=== PATIENT | female | born 1995 | race American Indian/Alaskan Native ===

== ENCOUNTER 2020-01-28 01:00 | Emergency (ER) | payer MEDICAID ==
[2020-01-28] MEDS ORDERED: SODIUM CHLORIDE 0.9% 1000 ML 1,000 ML IV ONE (03:01)
[2020-01-28] MEDS ORDERED: PYRIDOXINE 50 MG TAB PO SCH (03:01)
[2020-01-28] MEDS ORDERED: diphenhydrAMINE 50 MG/ML VIAL IV STA (03:01)
[2020-01-28] MEDS ORDERED: METOCLOPRAMIDE 10 MG/2 ML INJ IV STA (03:01)
--- NOTE | 2020-01-28 03:23 | Emergency Department Report ---
ED N/V/D HPI - General Chief complaint: Nausea/Vomiting/Diarrhea Stated complaint: VOMITING(9-10 WKS PREG) Time Seen by Provider: 01/28/20 03:00 Source: patient Mode of arrival: Ambulatory Limitations: No Limitations - History of Present Illness Initial comments: 24-year-old -[place] female who is 19 weeks presents to the emergency department complaining of hyperemesis over the last 3 weeks which is been progressively worsening since onset. States she has been 3 other times also and also had issues with hyperemesis. Here she reports no hemoptysis no hematemesis no hematochezia no abdominal pain no fever, chills, sweats no dysuria no chest pain no palpitations no presyncope. 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 She states that usually she has to take that decaliters with the Zofran but her insurance will not cover them. MD complaint: nausea, vomiting Associated Abdominal Pain: No Location: diffuse Radiation: none Severity: mild Pain Scale: 0 Quality: dull Consistency: constant Improves with: none, bowel movement Associated Symptoms: nausea/vomiting. denies: chest pain, diaphoresis, fever/chills, loss of appetite, malaise, rash, dysuria, shortness of breath, syncope, weakness - Related Data Previous Rx's Medication Instructions Recorded Last Taken Type Doxylamine Succinate/Vit B6 1 each PO Q8HR #30 tablet. 01/28/20 Unknown Rx [D[address]ra[address] Dr 10-10 mg Tablet] Allergies Allergy/AdvReac Type Severity Reaction Status Date / Time No Known Allergies Allergy Unverified 01/28/20 04:21 ED Review of Systems ROS: Stated complaint: VOMITING(9-10 WKS PREG) Other details as noted in HPI Comment: All other systems reviewed and negative ED Past Medical Hx - Past Medical History Previous Medical History?: Yes Hx Asthma: Yes - Surgical History Past Surgical History?: No - Social History Smoking Status: Never Smoker Substance Use Type: None - Medications Home Medications: Home Medications Medication Instructions Recorded Confirmed Last Taken Type Doxylamine Succinate/Vit B6 1 each PO Q8HR #30 tablet. 01/28/20 Unknown Rx [Gracie Dr 10-10 mg Tablet] ED Physical Exam - General Limitations: No Limitations General appearance: alert, in no apparent distress - Head Head exam: Present: atraumatic, normocephalic - Eye Eye exam: Present: normal appearance, PERRL, EOMI Pupils: Present: normal accommodation - ENT ENT exam: Present: normal exam, normal orophraynx, mucous membranes moist, TM's normal bilaterally - Neck Neck exam: Present: normal inspection, tenderness, full ROM - Respiratory Respiratory exam: Present: normal lung sounds bilaterally. Absent: respiratory distress, wheezes, rhonchi, stridor - Cardiovascular Cardiovascular Exam: Present: regular rate, normal rhythm. Absent: systolic murmur, diastolic murmur, rubs, gallop - GI/Abdominal GI/Abdominal exam: Present: soft, normal bowel sounds. Absent: tenderness, guarding, hyperactive bowel sounds, hypoactive bowel sounds - Extremities Exam Extremities exam: Present: normal inspection - Back Exam Back exam: Present: normal inspection - Neurological Exam Neurological exam: Present: alert, oriented X3 - Psychiatric Psychiatric exam: Present: normal affect, normal mood - Skin Skin exam: Present: warm, dry, intact, normal color. Absent: rash ED Course Vital Signs 01/28/20 01:10 Temperature 98.8 F Pulse Rate 107 H Respiratory 12 Rate Blood Pressure 115/74 O2 Sat by Pulse 99 Oximetry ED Medical Decision Making - Medical Decision Making Female presents emergency department complaining of nausea and vomiting without diarrhea. The patient is overall well-appearing and suspected to have hyperemesis gravidarum. Given the history of examination he does not appear to be an emergency cause for the symptoms such as small bowel obstruction, coronary syndrome, bowel ischemia, DKA, pancreatitis, appendicitis, acute abdomen no emergent problem. Patient was treated with Reglan, Benadryl, fluids as well as vitamin D6. After treatment patient is feeling much better tolerating p.o. fluids shows no signs of dehydration Critical care attestation.: If time is entered above; I have spent that time in minutes in the direct care of this critically ill patient, excluding procedure time. ED Disposition Clinical Impression: Hyperemesis gravidarum Disposition: DC-01 TO HOME OR SELFCARE Is pt being admited?: No Does the pt Need Aspirin: No Condition: Stable Instructions: Hyperemesis Gravidarum (ED) Prescriptions: Doxylamine Succinate/Vit B6 [Ayeshagis Dr 10-10 mg Tablet] 1 each PO Q8HR #30 tablet.dr Referrals: RENETTA RUANOGENOA MD LYDIA [Primary Care Provider] - 3-5 Days [facility] [Provider Group] - 3-5 Days
[2020-01-28 05:03] VITALS: BP 98/41
== END 2020-01-28 05:04 | disposition home or self-care (01) ==
LOC: ED 01:00
DX: O21.0 Mild hyperemesis gravidarum (principal); O99.512 Diseases of the respiratory system complicating pregnancy, second trimester; Z3A.19 19 weeks gestation of pregnancy
CPT/HCPCS: 96361; 96374; 96375; 99282; J1200; J2765; J7030